=== PATIENT | male | born 1960 | race Caucasian/White ===

== ENCOUNTER 2021-12-04 04:05 | Outpatient (CLI) | payer BC, SELFPAY ==
[2021-12-04 12:44] LABS: COMMENT (LAB VIEW ONLY) 165.67 mg/dL; Microalb ug/mg Crea 5.6 ug/mg Cr
[2021-12-04 13:18] LABS: ALT 19 U/L (16-63); AST 13 U/L (15-37); Albumin 4.2 g/dL (3.4-5.0); Alkaline Phosphatase 83 U/L (46-116); Anion Gap 5.9 mmol/L (3-11); BUN 15 mg/dL (7-18); Bilirubin, Total 0.5 mg/dL (0.2-1.0); CO2 30.1 mmol/L (21.0-32.0); CREATININE 0.9 mg/dL (0.70-1.30); Calculated LDL 96 mg/dL (<100); Chloride 103 mmol/L (98-107); Cholesterol 178 mg/dL (<200); Glucose 123 mg/dL (74-106); HDL Cholesterol 49 mg/dL (40-60); Potassium 4.7 mmol/L (3.5-5.1); Sodium 139 mmol/L (136-145); Total Protein 7.7 g/dL (6.4-8.2); Triglyceride 169 mg/dL (<150); Vitamin B12 1027 pg/mL (193-986)
[2021-12-04 14:01] LABS: Hemoglobin A1C 6.5 % (<5.7)
== END 2021-12-04 04:06 | disposition home or self-care (01) ==
LOC: LOS 04:08
PROVIDERS: PCP Family Medicine; Visit Provider Family Medicine
DX: E11.9 Type 2 diabetes mellitus without complications (principal); E78.5 Hyperlipidemia, unspecified
CPT/HCPCS: 36415; 80053; 80061; 82043; 82570; 82607; 83036

== ENCOUNTER 2022-06-29 10:42 | Day surgery (SDC) | payer BC, SELFPAY ==
[2022-06-29 11:20] VITALS: BP 133/81; PULSE 80; RESP 16; TEMP 36.7; O2SAT 96
[2022-06-29] MEDS: Lactated Ringers 1,000 ML 80 ML IV (11:40)
--- NOTE | 2022-06-29 11:40 | W.ANESPRE ---
General Info Date of Service Date Performed: 06/29/22 Height: 6 ft 0.05 in Weight: 77.8 kg Body Mass Index (BMI): 23.2 Surgical Procedure: Operation Date: 06/29/22 12:35 Proposed Procedure Side Surgeon p Colonoscopy Fortunato Barnett MD Meds Allergies and Home Medications Allergies Allergy/AdvReac Type Severity Reaction Status Date / Time No Known Allergies Allergy Unverified 06/29/22 11:17 Home Medication Medication Instructions Recorded aspirin 81 mg chewable tablet 81 mg PO DAILY 05/19/21 diphenhydramine HCl 25 mg capsule 50 mg PO QHS 07/02/21 (Allergy (diphenhydramine)) lisinopril 2.5 mg tablet 2.5 mg PO DAILY #90 tabs 01/02/22 metformin 500 mg tablet 500 mg PO BID #180 tabs 01/02/22 paroxetine HCl 25 mg 25 mg PO DAILY #90 tabs 01/02/22 tablet,extended release 24 hr simvastatin 20 mg tablet 20 mg PO DAILY #90 tabs 01/02/22 bisacodyl 5 mg tablet,delayed 5 mg PO ONCE #4 tabs 06/18/22 release (Dulcolax (bisacodyl)) polyethylene glycol 3350 17 17 g PO ONCE #238 grams 06/18/22 gram/dose oral powder Current Visit Medications: Current Medications Generic Name Dose Route Start Last Admin Trade Name Freq PRN Reason Stop Dose Admin Ringer's Solution 1,000 mls @ 80 mls/hr 06/29/22 06:00 IV 07/21/22 23:59 INFUSION ALLISON IV Miscellaneous Supplies 1 each 06/29/22 06:00 Iv Access IV 07/21/22 23:59 DIRECTED ALLISON Sodium Chloride 0 ml 06/29/22 06:00 Normal Saline Flush 10 Ml Syr IV 07/21/22 23:59 PRN PRN Sodium Chloride 0 ml 06/29/22 06:00 Normal Saline 10 Ml Vial IJ 07/21/22 23:59 DIRECTED PRN Sterile Water 0 ml 06/29/22 06:00 Water,Injection,Sterile 10 Ml Vial IJ 07/21/22 23:59 DIRECTED PRN PFSH Active Problems Active Problems: Problem Status Onset Code Screening for colon cancer Z12.11 Type II diabetes mellitus E11.9 Anxiety F41.9 Hyperlipidemia E78.5 Medical History Medical History Comments:: Postop cholecystectomy; agitated/needed haley restraint. Surgical History Surgical History S/P laparoscopic cholecystectomy Tobacco Smoking/Tobacco Use Status: Former Tobacco Use Passive smoking exposure: Yes Second hand exposure: Yes Alcohol Alcohol Intake: former Details: previously drank, just stopped Substance Use Substance use: Never Substance use type: does not use Vital Signs and Lab Results Vital Signs Most Recent Vital Signs in EMR: Most Recent Vital Signs Temp Pulse Resp BP Pulse Ox 36.7 C 80 16 133/81 96 06/29/22 11:20 06/29/22 11:20 06/29/22 11:20 06/29/22 11:20 06/29/22 11:20 Lab Results Blood Type / Crossmatch: No Data to Display Complete Blood Count: No Data to Display Complete Metabolic Panel: No Data to Display Liver Function Panel: No Data to Display Coagulation Panel: No Data to Display Cardiac Panel: No Data to Display Arterial Blood Gas: No Data to Display Venous Blood Gas: No Data to Display Pancreas Panel: No Data to Display Thyroid Panel: No Data to Display Infectious Disease: No Data to Display Blood Cultures: No Data to Display Toxicology Panel: No Data to Display Anesthesia Assessment and Plan Anesthesia History Personal History: No History of Anesthesia Complications and Other Family History: No Family History of Anesthesia Complications Exercise Tolerance Exercise Tolerance: Metabolic Equivalents>4 Pertinent Negatives Pertinent Negatives: No Symptoms of GERD Cardiac & Pulmonary Exam Cardiac Exam: Normal S1/S2 Heart Sounds Pulmonary Exam: Clear Bilateral Breath Sounds Implantable Cardiac Device Does patient have a Pacemaker or an ICD?: No Airway Exam Known Difficult Airway: No Mallampati Class: 2 Mouth Opening: Normal (> 3cm) Thyromental Distance: Greater than 3 cm Neck Range of Motion: Full ROM Neck Circumference: Normal Teeth Condition: Normal Dentition ASA Classification ASA Score: ASA 2 Emergency Case?: No NPO Status NPO Status: NPO Clears >2 hours, Solids >8 hours Anesthesia Plan Resuscitation Status: Full Code Anesthesia Technique: General Anesthesia Airway Planned: Natural Airway Monitors Used: Standard Monitors
--- NOTE | 2022-06-29 11:41 | W.COLOREPORT ---
Date of service: 06/29/22 Time of Service: 12:22 Colonoscopy Report Procedure Description: Procedures performed: 1. Colonoscopy Preoperative diagnosis: Screening colonoscopy Postoperative diagnosis: Normal Surgeon: Gissel Barnett Anesthesia: Ghassan Indication for procedure: 62 yo man wihtout symptoms or family history of significance here for first screening colonoscopy. Findings: Normal Colon. Normal Rectum. Surveillance/follow-up recommendations: 10 years Complications: None Blood loss: Minimal Prep: Excellent Procedure in detail: Written consent was obtained from the patient who was in agreement with the risks, benefits and indications of the procedure.? We went to the endoscopy suite and laid the patient in left lateral decubitus position.? Anesthesia was administered which was tolerated well.? A timeout was performed and when we are all in agreement we began the procedure. Digital rectal exam and visual examination was performed and within normal limits.? A well?lubricated colonoscope was advanced without difficulty all the way to the cecum identified by the ileocecal valve, and triangular folds and appendiceal orifice.? It was then slowly withdrawn.?? Retroflexion was performed in the rectum.? The findings/interventions are noted above. The scope was then removed and the patient tolerated the procedure well and was then taken back to the PACU in hemodynamically stable condition.
[2022-06-29 11:42] VITALS: BMI 23.2
[2022-06-29 12:43] VITALS: BP 105/63; PULSE 64; RESP 16; TEMP 36.7; O2SAT 96
[2022-06-29 12:51] VITALS: BP 111/70; PULSE 62; RESP 16; TEMP 36.6; O2SAT 97
--- NOTE | 2022-06-29 13:12 | W.ANESPOSTOP ---
Postoperative Evaluation Date, Time and Location Date Performed: 06/29/22 Time Performed: 12:53 Patient Location: Day Surgery Unit Vital Signs Most Recent Imported Vital Signs: Most Recent Vital Signs Temp Pulse Resp BP Pulse Ox 36.6 C 62 16 111/70 97 06/29/22 12:51 06/29/22 12:51 06/29/22 12:51 06/29/22 12:51 06/29/22 12:51 Pain Score Most Recent Pain Score: Most Recent Pain Score Pain Level 0 06/29/22 12:51 Assessment Mental Status: Awake (Alert & Oriented to Patient Baseline) Airway and Respiratory Function: Patent airway with normal (patient baseline) respiratory exam Cardiovascular Function: Hemodynamically Stable Hydration Status: Adequately Hydrated Nausea & Vomiting: No Nausea or Vomiting Pain: Pt. Denies Any Pain Peripheral Nerve Block: Patient did not receive a nerve block
== END 2022-06-29 13:05 | disposition home or self-care (01) ==
PROVIDERS: PCP Family Medicine; Visit Provider Student in an Organized Health Care Education/Training Program
PROC: 0DJD8ZZ Inspection of Lower Intestinal Tract, Via Natural or Artificial Opening Endoscopic (ICD-10-PCS; CPT 45378; principal; 2022-06-29 12:30)
DX: Z12.11 Encounter for screening for malignant neoplasm of colon (principal); E78.5 Hyperlipidemia, unspecified; E11.9 Type 2 diabetes mellitus without complications
CPT/HCPCS: 45378

== ENCOUNTER 2023-07-22 04:51 | Outpatient (CLI) | payer BC, SELFPAY ==
[2023-07-22 17:05] LABS: COMMENT (LAB VIEW ONLY) 156.41 mg/dL
[2023-07-22 17:34] LABS: Anion Gap 6.2 mmol/L (3-11); BUN 20 mg/dL (7-18); CO2 30.8 mmol/L (21.0-32.0); CREATININE 0.8 mg/dL (0.70-1.30); Calcium 9.3 mg/dL (8.5-10.1); Calculated LDL 73 mg/dL (<100); Chloride 101 mmol/L (98-107); Cholesterol 167 mg/dL (<200); Estimated GFR 100.06 (mL/min/1.73m2); Glucose 121 mg/dL (74-106); HDL Cholesterol 44 mg/dL (40-60); Sodium 138 mmol/L (136-145); Triglyceride 251 mg/dL (<150); Vitamin B12 1133 pg/mL (193-986)
[2023-07-22 18:07] LABS: Vitamin D 25 Total 24.1 ng/mL (30-100)
== END 2023-07-22 04:52 | disposition home or self-care (01) ==
LOC: LBO 04:51
PROVIDERS: PCP Family Medicine; Visit Provider Family Medicine
DX: E11.9 Type 2 diabetes mellitus without complications (principal)
CPT/HCPCS: 36415; 80048; 80061; 82306; 82043; 82570; 82607

== ENCOUNTER 2024-07-26 15:57 | Outpatient (REF) | payer BC, SELFPAY ==
[2024-07-26 21:49] LABS: Hemoglobin A1C 6.8 % (<5.7)
[2024-07-26 22:05] LABS: COMMENT (LAB VIEW ONLY) 167.45 mg/dL; Microalb ug/mg Crea 6.9 ug/mg Cr
[2024-07-26 22:19] LABS: ALT 27 U/L (16-63); AST 14 U/L (15-37); Albumin 4.7 g/dL (3.4-5.0); Alkaline Phosphatase 83 U/L (46-116); Anion Gap 7.5 mmol/L (3-11); BUN 19 mg/dL (7-18); Bilirubin, Total 0.44 mg/dL (0.2-1.0); CO2 29.5 mmol/L (21.0-32.0); CREATININE 0.9 mg/dL (0.70-1.30); Calcium 9.6 mg/dL (8.5-10.1); Calculated LDL 68 mg/dL (<100); Chloride 102 mmol/L (98-107); Cholesterol 150 mg/dL (<200); Estimated GFR 95.97 (mL/min/1.73m2); Glucose 106 mg/dL (74-106); HDL Cholesterol 51 mg/dL (40-60); Potassium 4.1 mmol/L (3.5-5.1); Sodium 139 mmol/L (136-145); Total Protein 8.1 g/dL (6.4-8.2); Triglyceride 155 mg/dL (<150); Vitamin B12 935 pg/mL (193-986); Vitamin D 25 Total 36.8 ng/mL (30-100)
[2024-07-27 22:29] LABS: PSA, Screening 0.8 ng/mL (<=4.5)
[2024-07-27 23:10] LABS: Hepatitis C Ab w Rflx HCV PCR Negative (Negative)
[2024-07-27 23:29] LABS: HIV-1/2 Ag & Ab Screen Negative (Negative)
== END 2024-07-26 15:58 | disposition home or self-care (01) ==
LOC: LBN 15:57
PROVIDERS: PCP Family Medicine; Visit Provider Family Medicine
DX: E11.9 Type 2 diabetes mellitus without complications (principal); E55.9 Vitamin D deficiency, unspecified; Z11.59 Encounter for screening for other viral diseases; Z11.4 Encounter for screening for human immunodeficiency virus [HIV]; Z12.5 Encounter for screening for malignant neoplasm of prostate
CPT/HCPCS: 80053; 80061; 82306; 84153; 86803; 87389; 82043; 82570; 82607; 83036

== ENCOUNTER 2024-11-16 11:41 | Outpatient (CLI) | payer BC, SELFPAY ==
[2024-11-16 17:05] LABS: Abs Immature Grans 0.02 10^3/uL (0.0-0.06); Absolute Basophil Count 0.06 10^3/uL (0.0-0.2); Absolute Eosinophil Count 0.33 10^3/uL (0.0-0.7); Absolute Lymphocyte Count 3.13 10^3/uL (1.2-3.4); Absolute Monocyte Count 0.61 10^3/uL (0.1-0.8); Absolute Neutrophil Count 3.47 10^3/uL (1.2-6.7); Basophils % 0.8 %; Eosinophils % 4.3 %; HCT 39.9 % (40.0-50.0); HGB 13.3 g/dL (13.5-17.5); Immature Grans % 0.3 %; Lymphocytes % 41.1 %; MCH 29.9 pg (27.0-33.0); MCHC 33.3 % (32.0-36.0); MCV 90 fL (80-95); MPV 8.9 fL (8.0-11.0); Neutrophils % 45.5 %; Platelet Count 274 10^3/uL (130-400); RBC 4.45 10^6/uL (4.36-5.78); RDW 12.3 % (11.8-14.1); RDW-SD 40.7 fL; WBC 7.62 10^3/uL (4.4-10.8)
[2024-11-16 17:07] LABS: Bilirubin Negative (Negative); Blood Negative (Negative); Clarity Clear (Clear); Glucose Negative (Negative); Ketones Negative (Negative); Leukocyte Esterase Negative (Negative); Nitrite Negative (Negative); Urobilinogen 0.2 mg/dL (Up to 0.2); pH 5.5 (5-8)
[2024-11-16 18:09] LABS: ALT 25 U/L (16-63); AST 14 U/L (15-37); Albumin 4.5 g/dL (3.4-5.0); Alkaline Phosphatase 86 U/L (46-116); Anion Gap 6.3 mmol/L (3-11); BUN 21 mg/dL (7-18); Bilirubin, Total 0.4 mg/dL (0.2-1.0); CO2 32.7 mmol/L (21.0-32.0); CREATININE 0.8 mg/dL (0.70-1.30); Calcium 9.6 mg/dL (8.5-10.1); Chloride 104 mmol/L (98-107); Estimated GFR 99.44 (mL/min/1.73m2); Glucose 104 mg/dL (74-106); Sodium 143 mmol/L (136-145); Total Protein 8.3 g/dL (6.4-8.2)
== END 2024-11-16 11:42 | disposition home or self-care (01) ==
PROVIDERS: PCP Family Medicine; Visit Provider Family Medicine
DX: R10.11 Right upper quadrant pain (principal)
CPT/HCPCS: 36415; 80053; 81003; 85025